=== PATIENT | female | born 1985 | race Caucasian/White ===

== ENCOUNTER 2023-01-15 21:33 | Emergency (ER) | payer OTHER, MEDICAID ==
[~2023-01-15] VITALS: Ht 160 cm; Wt 78.9 kg
[2023-01-15 21:58] VITALS: BP_SYST 130; PULSE 56; RESP 20; TEMP 98.3; O2SAT 99
[2023-01-16 00:05] LABS: BASOPHILS # (AUTO) 0.1 K/uL (0.0-0.2); BASOPHILS % (AUTO) 0.8 % (0.0-2.0); EOSINOPHILS # (AUTO) 0.3 K/uL (0.0-0.4); EOSINOPHILS % (AUTO) 3.8 % (0.0-4.0); HEMATOCRIT 40.3 % (36-48); HEMOGLOBIN 13.3 g/dL (12.0-16.0); MEAN CORPUSCULAR HEMOGLOBIN 29 pg (27-31); MEAN CORPUSCULAR HGB CONC 33 % (32-36); MEAN CORPUSCULAR VOLUME 88 fL (79.0-98.0); MONOCYTES # (AUTO) 0.5 K/uL (0.0-1.0); MONOCYTES % (AUTO) 6.3 % (1.7-9.3); NEUTROPHILS # (AUTO) 4.4 K/uL (1.8-7.7); NEUTROPHILS % (AUTO) 53.1 % (40.0-70.0); PLATELET COUNT (AUTO) 277 K/uL (130-430); RED BLOOD CELL COUNT(AUTO) 4.61 MIL/uL (4.2-6.2); RED CELL DISTRIBUTION WIDTH 12.6 % (9.0-15.0); WHITE BLOOD COUNT (AUTO) 8.2 K/uL (4.8-10.8)
[2023-01-16 00:37] LABS: CREATININE 0.79 mg/dL (0.55-1.30)
[2023-01-16 00:42] LABS: ALBUMIN 3.6 g/dL (3.4-4.8); TOTAL BILIRUBIN 0.7 mg/dL (0.0-1.0); TOTAL PROTEIN, SERUM 7.1 g/dL (6.4-8.3)
[2023-01-16 00:58] LABS: BILIRUBIN,URINE NEGATIVE (NEGATIVE); CLARITY/URINE CLEAR (CLEAR); COLOR,URINE YELLOW (YELLOW); GLUCOSE,URINE NEGATIVE (NEGATIVE); KETONES,URINE NEGATIVE (NEGATIVE); LEUKOCYTE ESTERASE ,URINE NEGATIVE (NEGATIVE); NITRITE, URINE NEGATIVE (NEGATIVE); PROTEIN URINE NEGATIVE (NEGATIVE); UROBILINOGEN,URINE 0.2 (0.2-1.0)
[2023-01-16 01:07] LABS: BLOOD, URINE TRACE (NEGATIVE)
[2023-01-16 01:08] LABS: BACTERIA,URINE None Seen /HPF (None Seen); WBC,URINE 0-3 /HPF (0-3)
[2023-01-16 03:33] VITALS: BP_SYST 121; PULSE 52; RESP 18; TEMP 98.3; O2SAT 99
== END 2023-01-16 03:33 | disposition home or self-care (01) ==
LOC: SED 21:33
DX: S05.12XA Contusion of eyeball and orbital tissues, left eye, initial encounter (principal); S09.90XA Unspecified injury of head, initial encounter; F07.81 Postconcussional syndrome; Z79.899 Other long term (current) drug therapy; Y04.0XXA Assault by unarmed brawl or fight, initial encounter; Y93.89 Activity, other specified; Y92.89 Other specified places as the place of occurrence of the external cause; Y99.8 Other external cause status
CPT/HCPCS: 36415; 70450-TC; 70486-TC; 76376; 80053; 81000; 81001; 81015; 81025; 85025; 99284